=== PATIENT | male | born 1965 | race Caucasian/White ===

== ENCOUNTER 2021-01-04 10:46 | Emergency (ER) | payer OTHER ==
[2021-01-04 10:50] VITALS: BP 139/100; PULSE 91; TEMP 99; BMI 29.4
[2021-01-04 11:23] LABS: BASO % 2.7 % (0-2.0); EOS % 1.8 % (0-4.5); HEMATOCRIT 43.9 % (35.4-49); HEMOGLOBIN 14.8 GM/dl (11.7-16.9); LYMPH % 25.6 % (8-40); MCH 32.6 pg (25.7-33.7); MCHC 33.6 g/dl (32.0-35.9); MEAN CELL VOLUME 96.9 fl (80-96); MEAN PLT VOLUME 7.8 fl (7.5-11.1); MONO % 6.4 % (3.8-10.2); NEUT % 63.5 % (42.8-82.8); PLATELET COUNT 228 K/MM3 (134-434); RBC 4.53 M/mm3 (4.00-5.60); RDW 12.8 % (11.9-15.9); WHITE BLOOD COUNT 6.3 K/mm3 (4.0-10.8)
[2021-01-04 11:41] LABS: ACTIVATED PTT 25.5 SECONDS (25.2-36.5)
[2021-01-04 11:46] LABS: INR 1.12 (0.82-1.09); PROTHROMBIN TIME (PATIENT) 12.4 SEC (10.2-13.0)
[2021-01-04 12:26] LABS: ALBUMIN 4.2 g/dl (3.4-5.0); BILIRUBIN,TOTAL 0.7 mg/dl (0.2-1); CALCIUM 9.2 mg/dl (8.5-10); CREATININE 1.2 mg/dl (0.55-1.3); TOT PROT 6.8 g/dl (6.4-8.2)
== END 2021-01-04 13:40 | disposition home or self-care (01) ==
LOC: FER 10:46
DX: R60.9 Edema, unspecified (principal)
CPT/HCPCS: 36415; 71045-TC-FY; 73030-TC-LT-FY; 80053; 85025; 85610; 85651; 85730; 86140; 93971; 99285-25

== ENCOUNTER 2021-01-05 12:27 | Emergency (ER) | payer OTHER ==
[2021-01-05 17:49] VITALS: BP 138/86; PULSE 87; TEMP 98.6
[2021-01-09 18:08] LABS: BABESIA MICROTI ANTIBODY IGG <1:10 (Neg:<1:10); BABESIA MICROTI ANTIBODY IGM <1:10 (Neg:<1:10)
== END 2021-01-05 18:46 | disposition home or self-care (01) ==
LOC: JER 12:27
DX: R22.32 Localized swelling, mass and lump, left upper limb (principal)
CPT/HCPCS: 36415; 71275-TC; 82930; 86618; 86753; 99284-25; Q9967